=== PATIENT | male | born 1960 | race Caucasian/White ===

== ENCOUNTER → 2020-05-17 | Outpatient (CLI) | payer OTHER | LOC: RAD 07:57 | DX: M47.812 Spondylosis without myelopathy or radiculopathy, cervical region (principal); M43.22 Fusion of spine, cervical region; M46.02 Spinal enthesopathy, cervical region ==

== ENCOUNTER → 2020-06-02 | Outpatient (CLI) | payer OTHER ==
[2020-06-02 09:37] LABS: CREATININE 1.1 mg/dL (0.7-1.3)
== END ==
LOC: MRI 08:54
DX: M48.02 Spinal stenosis, cervical region (principal); M25.78 Osteophyte, vertebrae; M43.22 Fusion of spine, cervical region; M54.12 Radiculopathy, cervical region

== ENCOUNTER → 2020-07-22 | Outpatient (CLI) | payer OTHER ==
[~2020-07-22] MED LIST: ALEVE220 M1 PO; ALLER-FLO15.8 ML INH; FLOVENT HFA INH; LIDODERM1 EACH TOP; NICOTINE LOZENGE2 MG; TESTOSTERONE75 G1; VOLTAREN GEL 1100 G1 TOP
== END ==
LOC: LAB
DX: Z01.812 Encounter for preprocedural laboratory examination (principal); Z20.828 Contact with and (suspected) exposure to other viral communicable diseases

== ENCOUNTER 2020-07-27 06:16 | Inpatient (IN) | payer OTHER ==
[2020-07-22 11:05] LABS: ABSOLUTE NEUTROPHILS 4.9 thou/uL (1.4-8.2); BASOPHILS 1.4 % (0.0-2.0); EOSINOPHILS 1.9 % (0.0-3.0); HEMATOCRIT 47.1 % (42.0-52.0); HEMOGLOBIN 15.8 gm/dL (14.0-18.0); LYMPHOCYTES 24.7 % (24.0-44.0); MCHC 33.6 g/dL (28.0-37.0); MCV 98.3 fL (80.0-100.0); MONOCYTES 11.9 % (1.0-8.0); PLATELET COUNT 287 thou/uL (150-400); POLYS 60.1 % (36.0-66.0); RBC 4.79 mil/uL (4.50-6.00); RDW 14.3 % (10.5-14.5); WBC 8.1 thou/uL (4.0-11.0)
[2020-07-22 11:07] LABS: URINE BILIRUBIN NEGATIVE (Negative); URINE BLOOD NEGATIVE (Negative); URINE CLARITY CLEAR; URINE COLOR YELLOW; URINE GLUCOSE-RANDOM* NEGATIVE (Negative); URINE KETONES NEGATIVE (Negative); URINE LEUKOCYTES-REFLEX NEGATIVE (Negative); URINE NITRITE-REFLEX NEGATIVE (Negative); URINE PROTEIN (DIPSTICK) NEGATIVE (Negative); URINE SPECIFIC GRAVITY 1.025 (1.005-1.035); URINE UROBILINOGEN 0.2 E.U./dl (0.2-1.0)
[2020-07-22 11:21] LABS: APTT 27.2 Seconds (24.5-32.8); PROTIME 9.9 Seconds (9.3-11.4)
[2020-07-22 11:26] LABS: ALBUMIN 4.1 g/dL (3.4-5.0); CREATININE 1.2 mg/dL (0.7-1.3); POTASSIUM 4.3 mmol/L (3.5-5.1); TOTAL BILIRUBIN 0.5 mg/dL (0.2-1.0); TOTAL PROTEIN 6.9 g/dL (6.4-8.2)
[2020-07-23 03:06] LABS: GLYCOHEMOGLOBIN (HGB A1C) 5.5 % (4.8-5.6)
[~2020-07-27] VITALS: Ht 180.3 cm; Wt 82.6 kg
[~2020-07-27 06:16] MED LIST changes: -NICOTINE LOZENGE2 MG; -TESTOSTERONE75 G1
[2020-07-27 07:46] VITALS: BP 124/90
[2020-07-27 14:35] VITALS: BP 96/52
[2020-07-27 15:00] VITALS: BP 93/54
[2020-07-27 15:25] VITALS: BP 96/69
[2020-07-27 17:00] VITALS: BP 104/69
--- NOTE | 2020-07-27 17:20 | NUR ---
PATIENT ARRIVED ON UNIT WAS RUDE AND HATEFUL WITH SHELF STOCKER BUT AFTER SPEAKING WITH DR DAS HE WAS CALM AND COOPERATIVE WITH CARE. LEAD ATG DEVELOPER PUMP STARTED ORDERED AND PO MEDS GIVEN. ADMISSION PAPERWORK DONE IN COMPUTER. DIET CHANGED HE IS AWAITING DINNER. FLUIDS INFUSING AWAITING IV NURSE TO PUT IN ANOTHER LINE FOR ABTS. PT'S SPOUSE HERE IN ROOM.
[2020-07-27 18:59] VITALS: BP 136/84
--- NOTE | 2020-07-27 20:05 | NUR ---
PATIENT HAS MEDS THAT HE SAYS WAS PUT IN COMPUTER IN PRE OP THAT HIS BROUGHT UP HE IS MAD ABOUT HIS STAY THE DOCTORS THE NURSES ALL OF HOSPITAL THIS NURSE AND NIGHT NURSE TRIED TO CALM DOWN. 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 PATIENT STATES HE WAS NOT TOLD THAT. WANTS TO GO AMA BUT WHEN THIS NURSE AND NIGHT NURSE WENT TO ROOM TO HAVE HIM SIGN PAPERS AND TO DC LINES HE NOW STATES THAT HE JUST NEEDS TO WALK THE HALLS. HAS STEADY GAIT AND MASK ON. PATIENT CAN BE VERBALLY ABUSIVE.
[2020-07-27] MEDS ORDERED: NICOTINE LOZENGE2 MG (20:49)
[2020-07-27] MEDS ORDERED: TESTOSTERONE75 G1 (20:51)
--- NOTE | 2020-07-28 01:46 | NUR ---
ASSESSED PT AT START OF SHIFT 1900. PT RESTLESS THREATENING TO LEAVE AMA.THIS NURSE ALONG SIDE WITH DAY SHIFT NURSE PRESENTED AMA FORM AND EDUCATED PT. PT WALKED THE [place] MULTIPLE TIMES. HOME MEDICATION SENT DOWN TO PHARMACY. PT IS A SMOKER. NICOTINE LOZENGES ADMINISTRED PT REFUSED AND STATED WILL LET NURSE KNOW WHEN NEEDED. SLIDE DEVELOPER PUMP INTACT AND INFUSING CALLED RT TO SET UP CAP[place]A MONITOR PT SAYS HE IS NOT READY YET. EDUCATION PROVIDED. PT AGITATED, RESTLESS AND USES FOUL WORDS. NURSE OFFERED ANXIETY MED OPTION PT STATES DOESN'T TAKE ANY. DICLOFENAC CREAM APPLIED ON BOTH SHOULDERS PT SAYS IT HELPS HIM CALM. IV INTACT AND FLUIDS INFUSING. DRIED BLOOD NOTED ON PT HEAD HE STATED DIDN'T HAVE IT PRIOR TO SX. CERVICAL COLLAR IN PLACE. CALLED MARJORIE SALVADOR AND NOTIFIED ABT PT. ZOFRAN ALSO PROVIDED DUE TO C/O NAUSEA. HOUSE SUP AWARE WILL CONT TO MONITOR.
[2020-07-28 04:00] VITALS: BP 130/89
[2020-07-28 05:43] LABS: HEMATOCRIT 39.2 % (42.0-52.0); MCH 32.8 pg (26.0-34.0); MCHC 33.2 g/dL (28.0-37.0); PLATELET COUNT 238 thou/uL (150-400); RBC 3.96 mil/uL (4.50-6.00); RDW 13.9 % (10.5-14.5); WBC 16.6 thou/uL (4.0-11.0)
--- NOTE | 2020-07-28 05:43 | NUR ---
Patient called out reporting that the IV to his left wrist is bleeding. Nurse attempted to flush IV. Leaking blood tinged saline from IV site. Patient hateful and disrespectful with nurse. Stating that he has been asking for this IV to be removed, "it is not doctor's ordered". Patient then insisted on taking a picture of the IV with his cell phone. Nurse moved IV pole to be able to reach IV saline lock to remove it. Patient then started to yell at nurse, calling her "stupid" and "you better watch it". Patient hyperverbal. Stating he needed a new pillow and new mask because he dropped his on the floor, he didn't want to get an infection. Nurse obliged request but patient continued to talk repetitively not allowing nurse to leave room to fulfill request. Patient then became angry because nurse didn't fullfill his request. Patient hyperactive about room. Pulling on lines and linens. Difficulty remaining still for the short amount of time to remove IV.
[2020-07-28 05:54] LABS: CALCIUM 8.3 mg/dL (8.5-10.1); CREATININE 1.6 mg/dL (0.7-1.3); MAGNESIUM 1.8 mg/dL (1.8-2.4); POTASSIUM 4.3 mmol/L (3.5-5.1)
[2020-07-28 07:40] VITALS: BP 135/78
[2020-07-28 08:47] LABS: ABSOLUTE NEUTROPHILS 12.8 thou/uL (1.4-8.2); PLATELET ESTIMATE NORMAL
--- NOTE | 2020-07-28 11:09 | NUR ---
ASSUMED CARE OF PATIENT AT 0700. PT IS AOX4, VSS. PT REPORTS HE HAS BEEN WAITING FOR PAIN MEDICATION SINCE 6AM WHEN MAINTENANCE WELDER WAS D/C'D. PT WAS ANGRY STATING HE WANTS TO LEAVE AMA, THE SURGEON AND WIG DRESSER HAS HIS NUMBER BLOCKED. NURSE OFFERED PT OXYCODONE FOR PAIN AND HE REFUSED STATING HE WILL JUST GO HOME AND USE HIS OWN MEDICATION. HE STATES, " I CAN'T TAKE TYLENOL AND THE NIGHT NURSE TRIED TO TRICK ME." PT REPORTS HE WILL PULL OUT HIS OWN IV AND HEMOVAC DRAIN IF IT'S NOT REMOVED CONNIE. PT REFUSED TO SIGN AMA FORM AND STATES HIS GLAZE SPRAYER TOLD HIM NOT TO SIGN IT. NURSE CALLED DR. SHEPARD TO REPORT PT BEHAVIOR. DR. SHEPARD GAVE ORDER TO LET PT LEAVE AMA. THE WIG DRESSER EMIR CAME TO TALK TO PT AND TRIED TO EXPLAIN THE REASONS FOR KEEPING HIS HEMOVAC DRAIN AND THE PT REFUSED TO LISTEN. PT WAS TALKING OVER WIG DRESSER EMIR AND REFUSED TO ALLOW HER TO ORDER THE PAIN MEDICATION HE WAS ASKING FOR. ALICIA FIELD REMOVED PT HEMOVAC DRAIN, NURSE REMOVED IV. PT RECEIVED HIS MEDICATIONS THAT WERE IN THE PHARMACY AND ALL OF HIS BELONGINGS WERE PACKED AND SENT HOME WITH PT.
--- NOTE | 2020-07-28 12:48 | NUR ---
unable to meet with patient as he left ama.
--- NOTE | 2020-07-30 13:49 | O ---
[facility] [place] [address] OPERATIVE REPORT Name: JESSICA ARMENTA Room #: 433-I [facility] IN ..#: [id number] Admission: 07/27/20 Attend Phys: Say Cardoso MD Discharge: 07/28/20 Date of : 58 Report #: [id number] THIS REPORT FOR: cc: Madison Lucas MD, Sharon D. MD Amundson, Glenn M MD ~ CC: Say Lucas DATE OF SERVICE: 07/27/2020 PREOPERATIVE DIAGNOSES: C2-C7 spinal stenosis; previous fusion, C4-C7 with findings of pseudoarthrosis; neck pain; radiculopathy; pseudoarthrosis, C6-C7; instability, C3-C4. POSTPROCEDURAL DIAGNOSES: C2-C7 spinal stenosis; previous fusion, C4-C7 with findings of pseudoarthrosis; neck pain; radiculopathy; pseudoarthrosis, C6-C7; instability, C3-C4. PROCEDURES: Application and removal of Santiago tongs; posterior segmental instrumentation, C3-C7; posterior posterolateral fusion, C3-C4; posterior posterolateral fusion, C4-C5; posterior posterolateral fusion, C5-C6; posterior posterolateral fusion, C6-C7; bilateral laminectomy with partial facetectomy and neural foraminotomy, C3; bilateral laminectomy with partial facetectomy and neural foraminotomy, C4; bilateral laminectomy with partial facetectomy and neural foraminotomy, C5; bilateral laminectomy with partial facetectomy and neural foraminotomy, C6; bilateral laminectomy, partial facetectomy and neural foraminotomy, C7; right neural foraminotomy, C2-C3; local bone graft harvest. SURGEON: Say Cardoso M.D. PLAY READER SURGEON: [place] ANESTHESIA: General via endotracheal tube. INDICATIONS: The patient had intractable neck and arm pain. He has developed central spinal stenosis at C3-C4. He has developed central stenosis at C6-C7. He has a pseudoarthrosis at C6-C7. He has a previous attempted fusion at C4-C7. The patient has multilevel neural foraminal stenosis from right C2-C3 to bilateral C3-C7. The patient has proved refractory to all forms of multimodality conservative management. He is requesting that we proceed with operative intervention. He understands the risks of surgery to be , DVT, pulmonary embolism, paraplegia, loss of bowel and bladder function, loss of sexual function, possibility of bleeding, bleeding requiring transfusion, transfusion attendant risks of AIDS and hepatitis, infection, instability, the need for revision, prolonged hospital stay, dural leak, spinal headache, [address] [address] OPERATIVE REPORT Name: JESSICA ARMENTA Room #: 433-I [facility] IN ..#: [id number] Admission: 07/27/20 Attend Phys: Say Cardoso MD Discharge: 07/28/20 Date of : 58 Report #: [id number] infection, failure of fusion, failure of instrumentation, adjacent level breakdown and again, he requested we proceed. DESCRIPTION OF PROCEDURE: The patient was brought to the operating room and administered general anesthesia via endotracheal tube. Lower extremities were treated with MANOLO hose. The patient received 10 of Decadron and perioperative antibiotic. Santiago tongs were applied to the skull and after intubation, he was positioned on the radiolucent table in the prone position on transverse rolls. The Santiago was attached to the frame of the bed with standard attachment and a neck neutral position. In this neck neutral position, the arms were carefully padded, tucked and taped to the sides and the patient was visualized under fluoroscopy and the spinous processes from C3-C7 were marked on the patient's back for surgical reference. We then sterilely prepped and draped and infiltrated the skin with 0.5% Marcaine, 1:200,000 epinephrine and performed a subperiosteal dissection of C2-C7. We maintained the facet capsules at the C2-C3 level. We did expose the C2-C3 neural foramen and performed an aggressive neural foraminal decompression. We found the C3-C4 level to be grossly unstable and requiring bilateral foraminotomies, which we felt would further destabilize the spine and the decision was made to insert instrumentation for stabilization of the C3-C4 level. The patient had had a previous attempted fusion, C4-C7 with findings of pseudoarthrosis, so instrumentation was placed in the lateral masses at C4, C5, C6, and C7. After placement of the screws, which was done by using a step drill and a ball tip probe to ensure there was no violation of the anterior cortex and then we used the tap to tap the lateral masses. We then inserted 12 mm screws in C3, C4, C5, C6 and C7, measured, cut and contoured rods, drilled out the inner facet region for a posterior fusion at C3-C4, C4-C5, C5-C6 and C6-C7. We then measured, cut and contoured the rods, locked them into place and set him on the right side, moved to the left side and performed exactly the same procedure. Placed the screws, measured, cut and contoured the rods and performed fusion, C3-C4, C4-C5, C5-C6, C6-C7. The fusion material was from the laminectomy. We performed a laminectomy from right C2-C7 with bilateral exposure at all levels except right only at C2-C3. We performed the neural foraminotomy at C2-C3 and then with the central elements relieved and thus a decompression at C3-C4 and C6-C7 complete, we performed aggressive neural foraminal decompressions until a nerve hook could be placed out the neural foramen without any encumbrance whatsoever. We could see the takeoff of the nerve roots as they headed out the neural foramen. With the nerve roots probed completely free bilaterally, we copiously irrigated with a liter of antibiotic-containing solution. We had packed the inner facet region with the patient's local bone, representing local bone graft autograft harvest. We had locked the fittings. We applied a transverse connector. We irrigated with a liter of antibiotic-containing solution. We placed a pledget of thrombin-soaked Gelfoam over the spinal canal to cover the naked dura and we closed the deep fascial layer with 0 Ethibond in [id number] interrupted fashion. We placed a transverse connector prior to closure of the deep fascial layer. We checked a final AP and lateral fluoroscopy view and it showed excellent position of all [address] [address] OPERATIVE REPORT Name: JESSICA ARMENTA Room #: 433-I [facility] IN ..#: [id number] Admission: 07/27/20 Attend Phys: Say Cardoso MD Discharge: 07/28/20 Date of : 58 Report #: [id number] instrumentation. The appropriate instruments were placed. The instrumentation was appropriate length and orientation and the overall spinal alignment was excellent. We closed the deep fascial layer with 0 Ethibond in [id number] interrupted fashion, deep subcu with 0 Vicryl, superficial subcu with 2-0 [address] we did place a medium Hemovac. Final blood loss was 650 mL. The patient oozed throughout the entire case from no one specific spot. The patient tolerated the procedure well. He was physiologically stable throughout and he was being transported to the recovery room having removed the Santiago tongs, removed the Duque and placed him in a soft collar. He tolerated the procedure well. No technical misadventures. <ELECTRONICALLY SIGNED> By: Say Cardoso MD 07/30/20 1349 [id number] Say Cardoso MD /nt
== END 2020-07-28 10:20 | disposition left against medical advice (07) | DRG 472 ==
LOC: TBA 06:16 → 4S 06:16 → PRE 10:26 → 4S 13:58
PROVIDERS: Nurse Practitioner
PROC: 0RG2071 Fusion of 2 or more Cervical Vertebral Joints with Autologous Tissue Substitute, Posterior Approach, Posterior Column, Open Approach (ICD-10-PCS; principal; 2020-07-27)
PROC: 01N10ZZ Release Cervical Nerve, Open Approach (ICD-10-PCS; principal; 2020-07-27)
DX: M96.0 Pseudarthrosis after fusion or arthrodesis (principal); F30.9 Manic episode, unspecified; M48.02 Spinal stenosis, cervical region; M50.122 Cervical disc disorder at C5-C6 level with radiculopathy; R45.1 Restlessness and agitation; Y83.8 Other surgical procedures as the cause of abnormal reaction of the patient, or of later complication, without mention of misadventure at the time of the procedure; Y82.8 Other medical devices associated with adverse incidents; F17.210 Nicotine dependence, cigarettes, uncomplicated; J44.9 Chronic obstructive pulmonary disease, unspecified; Y92.89 Other specified places as the place of occurrence of the external cause; Z88.8 Allergy status to other drugs, medicaments and biological substances; Z79.899 Other long term (current) drug therapy
CPT/HCPCS: 10102; 50010; 50101; 50402; 50455; 50838; 51412; 56524; 56526; 56529; 58370; 58371; 58372; 58373; 62110; 62900; 70005

== ENCOUNTER → 2020-08-09 | Outpatient (CLI) | payer OTHER ==
[~2020-08-09] MED LIST changes: +NICOTINE LOZENGE2 MG; +TESTOSTERONE75 G1
== END ==
LOC: RAD 09:36
DX: M43.22 Fusion of spine, cervical region (principal); Z98.890 Other specified postprocedural states